=== PATIENT | male | born 1990 | race Caucasian/White ===

== ENCOUNTER 2024-10-05 14:53 | Inpatient (IN) | payer SELFPAY ==
[~2024-10-05] VITALS: Ht 167.6 cm; Wt 64.1 kg
[2024-10-05 15:44] LABS: HEMATOCRIT 42.1 % (42.0-52.0); MEAN CORPUSCULAR HEMOGLOBIN 29.7 pg (27.0-33.0); MEAN CORPUSCULAR HGB CONC 33.3 g/dl (32.0-36.5); MEAN CORPUSCULAR VOLUME 89.2 fl (80.0-96.0); PLATELET COUNT, AUTOMATED 285 10^3/uL (150-450); RED BLOOD COUNT 4.72 10^6/uL (4.30-6.10); WHITE BLOOD COUNT 12.1 10^3/uL (4.0-10.0)
[2024-10-05 16:06] LABS: AMPHETAMINES LEVEL URINE NEGATIVE (NEGATIVE); BARBITURATES URINE NEGATIVE (NEGATIVE); BENZODIAZEPINES URINE NEGATIVE (NEGATIVE); COCAINE METABOLITE URINE NEGATIVE (NEGATIVE); METHADONE URINE NEGATIVE (NEGATIVE); OPIATES URINE NEGATIVE (NEGATIVE); PHENCYCLIDINE URINE NEGATIVE (NEGATIVE)
[2024-10-05 16:09] LABS: CANNABINOIDS URINE POSITIVE (NEGATIVE); ETHYL ALCOHOL (ETHANOL) < 0.003 % (0.000-0.010)
[2024-10-05 16:12] LABS: ALBUMIN 4.2 G/DL (3.2-5.2); ALKALINE PHOSPHATASE 55 U/L (40-129); ALT/SGPT 30 U/L (7.0-40); AST/SGOT 27 U/L (<34); BILIRUBIN,DIRECT 0.1 MG/DL (<0.4); BILIRUBIN,TOTAL 0.4 MG/DL (0.3-1.2); BLOOD UREA NITROGEN 12 MG/DL (9-23); CALCIUM LEVEL 9.6 MG/DL (8.5-10.1); CARBON DIOXIDE LEVEL 27 MMOL/L (20-31); CHLORIDE LEVEL 108 MMOL/L (98-107); CREATININE FOR GFR 0.85 MG/DL (0.70-1.30); GLOMERULAR FILTRATION RATE > 60.0 (>60); GLUCOSE, FASTING 96 MG/DL (60-100); POTASSIUM SERUM 4.1 MMOL/L (3.5-5.1); SALICYLATE LEVEL < 3.0 MG/DL (<30); SODIUM LEVEL 142 MMOL/L (136-145); TOTAL PROTEIN 7.1 G/DL (5.7-8.2)
[2024-10-05 16:14] LABS: THYROID STIMULATING HORMONE 1.349 uIU/ML (0.55-4.78)
[2024-10-05] MEDS ORDERED: traZODone 50 MG TAB PO PRN (17:45)
[2024-10-05] MEDS ORDERED: ACETAMINOPHEN 325 MG TAB PO PRN (17:45)
[2024-10-05] MEDS ORDERED: MAALOX 30 ML SUSP *UDC PO PRN (17:45)
[2024-10-05] MEDS ORDERED: MOM 30ML SUSPENSION UDC PO PRN (17:45)
[2024-10-05] MEDS ORDERED: diphenhydrAMINE 25MG CAP PO PRN (17:45)
[2024-10-05] MEDS ORDERED: IBUPROFEN 400MG TAB PO PRN (17:45)
[2024-10-05 18:36] VITALS: BP 141/92; TEMP 97.2; O2SAT 98
[2024-10-06 06:33] VITALS: BP 128/77; TEMP 97.4; O2SAT 99
== END 2024-10-06 10:11 | disposition home or self-care (01) | DRG 753 ==
LOC: M ED 14:53 → M ED INP 17:42 → M PSY 18:34
PROVIDERS: ADMIT Psychiatry & Neurology Neurology; ATTEND Psychiatry & Neurology Psychiatry
DX: F39 Unspecified mood [affective] disorder (principal); F12.90 Cannabis use, unspecified, uncomplicated; R45.851 Suicidal ideations